=== PATIENT | male | born 1930 | race Caucasian/White ===

== ENCOUNTER → 2016-08-06 | Outpatient (CLI) | payer MEDICARE ==
[~2016-08-06] MED LIST: ASP81CT; EZET10TA5; LSNP10T; MULT1TAB63; OMG1KC
[2016-08-06 08:02] LABS: RED BLOOD COUNT 4.58 10^6/uL (4.35-5.85); RED CELL DISTRIBUTION WIDTH 12.6 % (10.0-14.5)
[2016-08-06 08:26] LABS: ALBUMIN 4.1 G/DL (3.2-4.5); BILIRUBIN,TOTAL 0.8 MG/DL (0.1-1.0); CALCIUM 9.2 MG/DL (8.5-10.1); CREATININE SERUM 1.35 MG/DL (0.60-1.30); POTASSIUM 4.4 MMOL/L (3.6-5.0); TOTAL PROTEIN 7.2 G/DL (6.4-8.2)
--- NOTE | 2016-08-06 08:50 | Diagnostic Imaging Report ---
INDICATION: Coronary artery disease and hypertension. PA and lateral views of the chest are obtained with comparison made study of 10/10/2007. FINDINGS: Heart size and pulmonary vascularity remain within normal limits. Previous coronary artery surgery is noted. There is no evidence of pneumothorax, consolidation or significant pleural fluid. 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 Overall, there has been no adverse change. IMPRESSION: No acute abnormality or adverse change is identified. Dictated by: Dictated on workstation # [id number]
== END ==
LOC: LAB 07:40
PROVIDERS: ATTEND Internal Medicine Cardiovascular Disease
DX: I25.10 Atherosclerotic heart disease of native coronary artery without angina pectoris (principal); I10 Essential (primary) hypertension; E78.5 Hyperlipidemia, unspecified
CPT/HCPCS: 36415; 71020; 80053; 80061; 83880; 85027